=== PATIENT | male | born 1950 | race Caucasian/White ===

== ENCOUNTER 2018-01-18 16:12 | Emergency (ER) | payer MEDICARE, OTHER ==
[2018-01-18 16:12] VITALS: BMI 18.5
[2018-01-18 16:18] VITALS: BP 131/83; PULSE 70; RESP 20; TEMP 98.3; O2SAT 96
--- NOTE | 2018-01-18 16:42 | C.PDOC ---
History Of Present Illness 67 y/o male presents to the ER complaining of bilateral ear fullness and decreased hearing which has been present for the past 4 days. Patient states that he went to see his PCP.His PCP tried to irrigate his ear and clear some wax. However, his ear started bleeding. He was concerned so he decided to visit the ER today. Currently ,patient denies bleeding in his ears. Patient also denies having headache, fever,chills, nausea, and vomiting. Time Seen by Provider: 01/18/18 16:21 Chief Complaint (Nursing): ENT Problem History Per: Patient Onset/Duration Of Symptoms: Days Current Symptoms Are (Timing): Still Present Severity: Moderate Past Medical History Reviewed: Historical Data, Nursing Documentation, Vital Signs Vital Signs: Last Vital Signs Temp 98.3 F 01/18/18 16:16 Pulse 70 01/18/18 16:16 Resp 20 01/18/18 16:16 BP 131/83 01/18/18 16:16 Pulse Ox 96 01/18/18 20:30 - Medical History PMH: HTN Denies: Chronic Kidney Disease Surgical History: No Surg Hx - [facility] Procedures IRRIGATION OF EAR (09/07/14) MEASURE OF CARDIAC SAMPL & PRESSURE, L HEART, PERC APPROACH (10/01/15) PLAIN RADIOGRAPHY OF LEFT HEART USING LOW OSMOLAR CONTRAST (10/01/15) Family History: States: No Known Family Hx - Social History Hx Tobacco Use: Yes Hx Alcohol Use: Yes Hx Substance Use: No - Immunization History Hx Tetanus Toxoid Vaccination: No Hx Influenza Vaccination: No Hx Pneumococcal Vaccination: No Review Of Systems Constitutional: Negative for: Fever, Chills ENT: Positive for: Ear Pain Gastrointestinal: Negative for: Nausea, Vomiting Neurological: Negative for: Headache Physical Exam - Physical Exam Appears: Non-toxic, No Acute Distress Skin: Normal Color, Warm Head: Atraumatic, Normacephalic Eye(s): bilateral: Normal Inspection Ear(s): Bilateral: Other (cerumen impaction) Nose: Normal Oral Mucosa: Moist Throat: Normal, No Erythema, No Exudate Neck: Supple Chest: Symmetrical Cardiovascular: Rhythm Regular Respiratory: Normal Breath Sounds, No Accessory Muscle Use, No Rales, No Rhonchi , No Wheezing Gastrointestinal/Abdominal: Normal Exam, Soft, No Tenderness Neurological/Psych: Oriented x3, Normal Speech, Normal Motor, Normal Sensation ED Course And Treatment O2 Sat by Pulse Oximetry: 96 (RA) Pulse Ox Interpretation: Normal Disposition Counseled Patient/Family Regarding: Diagnosis, Need For Followup - Disposition Referrals: Armando Mendosa MD [Staff Provider] - Disposition: HOME/ ROUTINE Disposition Time: 16:39 Condition: STABLE Additional Instructions: Use 4-5 gotas de aceite de glicerina por noche en cada odo. Cubra con algodn, use agua tibia y perxido de hidrgeno para irrigar la oreja. Apolinar un seguimiento con el mdico de odo. Instructions: Ear Wax Impaction (DC) Forms: [employer] (Eritrean) - POA Present On Arrival: None - Clinical Impression Clinical Impression: Cerumen impaction - Scribe Statement The provider has reviewed the documentation as recorded by the Scribe Danny Justice Provider Attestation: All medical record entries made by the Scribe were at my direction and personally dictated by me. I have reviewed the chart and agree that the record accurately reflects my personal performance of the history, physical exam, medical decision making, and the department course for this patient. I have also personally directed, reviewed, and agree with the discharge instructions and disposition.
== END 2018-01-18 16:57 | disposition home or self-care (01) ==
LOC: C.ER 16:12
DX: H61.23 Impacted cerumen, bilateral (principal)

== ENCOUNTER 2018-05-05 04:19 | Emergency (ER) | payer MEDICARE, OTHER ==
[2018-05-05 04:20] VITALS: BMI 18.5
--- NOTE | 2018-05-05 04:33 | C.PDOC ---
History Of Present Illness 67 year old male presents to the ER with a complaint of an episode of chest discomfort that lasted 5 minutes. Patient states his symptoms resolved after belching. Patient has a Hx of NH 2 years ago. Denies SOB, nausea, vomiting, or pain at this time. Chief Complaint (Nursing): Chest Pain History Per: Patient History/Exam Limitations: no limitations Onset/Duration Of Symptoms: Mins Current Symptoms Are (Timing): Better Associated Symptoms: denies: Nausea, Dyspnea, Diaphoresis, Syncope Modifying Factors: None Exacerbating Factors: None Alleviating Factors: None Recent travel outside of the [place]: No Past Medical History Reviewed: Historical Data, Nursing Documentation, Vital Signs Vital Signs: Last Vital Signs Temp 97.6 F 05/05/18 04:29 Pulse 68 05/05/18 04:53 Resp 22 05/05/18 04:29 BP 154/85 H 05/05/18 04:29 Pulse Ox 98 05/05/18 04:29 - Medical History PMH: HTN - [facility] Procedures IRRIGATION OF EAR (09/07/14) MEASURE OF CARDIAC SAMPL & PRESSURE, L HEART, PERC APPROACH (10/01/15) PLAIN RADIOGRAPHY OF LEFT HEART USING LOW OSMOLAR CONTRAST (10/01/15) Family History: States: Unknown Family Hx - Social History Hx Tobacco Use: Yes Hx Alcohol Use: Yes Hx Substance Use: No - Immunization History Hx Tetanus Toxoid Vaccination: No Hx Influenza Vaccination: No Hx Pneumococcal Vaccination: No Review Of Systems Constitutional: Negative for: Fever, Chills Cardiovascular: Positive for: Chest Pain Respiratory: Negative for: Cough, Shortness of Breath Gastrointestinal: Negative for: Nausea, Vomiting Physical Exam - Physical Exam Appears: Non-toxic Skin: Normal Color, Warm, Dry Head: Atraumatic, Normacephalic Eye(s): bilateral: Normal Inspection Oral Mucosa: Moist Neck: Normal, Supple Chest: Symmetrical, No Tenderness Cardiovascular: Rhythm Regular Respiratory: Normal Breath Sounds, No Rales, No Rhonchi, No Wheezing Gastrointestinal/Abdominal: Soft, No Tenderness Extremity: Normal ROM (x4) Neurological/Psych: Oriented x3, Normal Speech ED Course And Treatment - Laboratory Results Result Diagrams: 05/05/18 04:46 05/05/18 04:46 ECG: Interpreted By Me, Viewed By Me ECG Rhythm: Sinus Rhythm, Nonspecific Changes ECG Interpretation: No Acute Changes, Abnormal Interpretation Of ECG: NSR, non spc. ST-T hanges, abnormal tracings Rate From EC Progress Note: EKG and blood work ordered. Patient continues to be asymptomatic without any chest pain, will discharge home with instructions to follow up with PMD. Disposition Counseled Patient/Family Regarding: Diagnosis - Disposition Referrals: [facility] [Outside] Disposition: HOME/ ROUTINE Disposition Time: 05:21 Condition: STABLE Instructions: Chest Pain (DC) Forms: [facility] (Swiss), Gen Discharge Inst Arabic Print Language: FRISIAN - POA Present On Arrival: None - Clinical Impression Clinical Impression: Chest discomfort - Scribe Statement The provider has reviewed the documentation as recorded by the Scribe Jesse Summers All medical record entries made by the Scribe were at my direction and personally dictated by me. I have reviewed the chart and agree that the record accurately reflects my personal performance of the history, physical exam, medical decision making, and the department course for this patient. I have also personally directed, reviewed, and agree with the discharge instructions and disposition.
[2018-05-05 04:35] VITALS: RESP 22; TEMP 97.6; O2SAT 98
[2018-05-05 04:49] LABS: BASO # 0.1 K/uL (0.0-0.2); BASO % 0.6 % (0.0-2.0); EOS # 0.2 K/uL (0.0-0.7); HEMOGLOBIN 14.7 g/dL (12.0-18.0); LYMPH # 3.2 K/uL (1.0-4.3); LYMPH % 35.9 % (20.0-40.0); MEAN CELL VOLUME 91.8 fL (80.0-94.0); MEAN CORPUSCULAR HEMOGLOBIN 30.8 pg (27.0-31.0); MEAN CORPUSCULAR HGB CONC 33.6 g/dL (33.0-37.0); MEAN PLATELET VOLUME 7.9 fL (7.2-11.7); MONO # 0.8 K/uL (0.0-0.8); MONO % 9.6 % (0.0-10.0); NEUT # 4.5 K/uL (1.8-7.0); NEUT % 51.9 % (50.0-75.0); RBC 4.76 Mil/uL (4.40-5.90); RED CELL DISTRIBUTION WIDTH 13.4 % (11.5-14.5); WHITE BLOOD COUNT 8.8 K/uL (4.8-10.8)
[2018-05-05 04:56] VITALS: PULSE 68
[2018-05-05 05:05] LABS: ALB/GLOB RATIO 1.4 (1.0-2.1); ALBUMIN 4.3 g/dL (3.5-5.0); ALT/SGPT 32 U/L (21-72); AST/SGOT 31 U/L (17-59); BLOOD UREA NITROGEN 10 mg/dL (9-20); CALCIUM 9.1 mg/dl (8.6-10.4); GFR AFRICAN-AMERICAN > 60; GFR NON-AFRICAN AMERICAN > 60
[2018-05-05 05:38] VITALS: BP 144/78
--- NOTE | 2018-05-07 23:39 | CARD ---
APPROVED REPORT EKG Measurement Heart [id number] <Conclusion> Normal sinus rhythm Possible Left atrial enlargement Nonspecific ST abnormality Abnormal ECG
== END 2018-05-05 05:36 | disposition home or self-care (01) ==
LOC: C.ER 04:19
DX: R07.89 Other chest pain (principal); I10 Essential (primary) hypertension; Z72.0 Tobacco use